=== PATIENT | female | born 1995 ===

== ENCOUNTER 2024-07-19 08:09 | Outpatient (CLI) | payer OTHER | END 2024-07-19 08:10 | disposition home or self-care (01) | LOC: PRENATAL 08:09 | PROVIDERS: ATTEND Obstetrics & Gynecology Maternal & Fetal Medicine | DX: O44.00 Complete placenta previa NOS or without hemorrhage, unspecified trimester (principal); O28.3 Abnormal ultrasonic finding on antenatal screening of mother; Z3A.19 19 weeks gestation of pregnancy ==

== ENCOUNTER → 2024-09-16 08:57 | Outpatient (CLI) | payer OTHER | END | disposition home or self-care (01) | LOC: PRENATAL 08:57 | PROVIDERS: ATTEND Obstetrics & Gynecology Maternal & Fetal Medicine | DX: O26.849 Uterine size-date discrepancy, unspecified trimester (principal); O43.90 Unspecified placental disorder, unspecified trimester; O28.3 Abnormal ultrasonic finding on antenatal screening of mother; Z3A.28 28 weeks gestation of pregnancy ==